=== PATIENT | male | born 1950 | race Two or more races ===

== ENCOUNTER 2018-03-04 07:18 | Inpatient (IN) | payer OTHER ==
[2018-03-04] MEDS: LACTATED RINGER'S 1,000 ML IV* (06:00)
[2018-03-04] MEDS: SOD CHLORIDE 0.9% 100 ML, TRANEXAMIC ACID 3,000 MG IRR (08:00)
[2018-03-04] MEDS ORDERED: BUPIVACAINE 0.5% (SDV) 30 ML, morphine SULFATE (PF) 8 MG, EPINEPHrine 0.3 MG, KETOROLAC... IRR (08:00)
[2018-03-04] MEDS ORDERED: ROCURONIUM 50 MG INJ (08:22)
[2018-03-04] MEDS ORDERED: CEFAZOLIN 1 GM INJ (08:22)
[2018-03-04] MEDS ORDERED: PROPOFOL 20 ML (08:22)
[2018-03-04] MEDS ORDERED: NEOSTIGMINE 3 MG/3 ML SYRINGE (08:22)
[2018-03-04] MEDS ORDERED: GLYCOPYRROLATE 0.4 MG INJ (08:22)
[2018-03-04] MEDS ORDERED: ONDANSETRON 4 MG INJ (08:23)
[2018-03-04] MEDS ORDERED: DEXAMETHASONE 4 MG/ML 1 ML INJ (08:23)
[2018-03-04] MEDS ORDERED: MIDAZOLAM 1 MG/ML 2 ML INJ (08:23)
[2018-03-04] MEDS ORDERED: morphine SULFATE/PF (10 MG/10 ML) INJ (08:23)
[2018-03-04] MEDS ORDERED: FENTAnyl 50 MCG/ML VIAL (08:23)
[2018-03-04] MEDS: DEXAMETHASONE 1 MG TAB PO (08:35)
[2018-03-04] MEDS: TRANEXAMIC ACID 1,000 MG in DEXTROSE 5% 100 ML IVPB (10:00)
[2018-03-04] MEDS: POLYMYXIN/BACITRACIN 1L IRRIG (10:10)
[2018-03-04] MEDS: CEFAZOLIN 2 GM/50 ML (PMX) 50 ML IVPB (10:21)
[2018-03-04] MEDS ORDERED: THROMBIN 5000 UNIT VIAL (10:45)
[2018-03-04] MEDS ORDERED: POLYMYXIN/BACITRACIN 1L IRRIG (10:45)
[2018-03-04] MEDS ORDERED: CA CHLORIDE (GM) 10% 10 ML INJ (10:45)
[2018-03-04] MEDS ORDERED: KETOROLAC 30 MG INJ IV (11:00)
[2018-03-04] MEDS ORDERED: DIPHENHYDRAMINE 50 MG INJ IV ×3 (11:00→12:00)
[2018-03-04] MEDS ORDERED: MEPERIDINE 25 MG INJ IV (11:00)
[2018-03-04] MEDS ORDERED: KETOROLAC 15 MG INJ IV (11:00)
[2018-03-04] MEDS ORDERED: OXYCODONE/ACETAMINOPHEN (5/325) TAB PO ×2 (11:00)
[2018-03-04] MEDS ORDERED: MIDAZOLAM 1 MG/ML 2 ML INJ IV (11:00)
[2018-03-04] MEDS ORDERED: HYDROmorphONE 1 MG/5 ML IV SYRINGE IV ×3 (11:00)
[2018-03-04] MEDS ORDERED: NALBUPHINE HCL (10 MG/1 ML) INJ IV (11:00)
[2018-03-04] MEDS ORDERED: LABETALOL HCL 20MG INJ IV (11:00)
[2018-03-04] MEDS ORDERED: NALOXONE (0.4 MG/ML) INJ IV (11:00)
[2018-03-04] MEDS ORDERED: HYDROmorphONE 0.5 MG/0.5 ML SYG IV ×2 (11:00)
[2018-03-04] MEDS ORDERED: hydrALAzine 20 MG INJ IV (11:00)
[2018-03-04] MEDS ORDERED: ALBUTEROL 0.083% (NEB) 2.5 MG/3 ML AMP HHN (11:00)
[2018-03-04] MEDS ORDERED: EPHEDrine SULFATE 50 MG/5 ML SYG IV (11:00)
[2018-03-04] MEDS ORDERED: TRIMETHOBENZAMIDE 100 MG/ML VIAL IM ×2 (11:00)
[2018-03-04] MEDS ORDERED: FENTAnyl 50 MCG/ML VIAL IV ×3 (11:00)
[2018-03-04] MEDS ORDERED: IPRATROPIUM (NEB) 0.5 MG/2.5 ML AMP HHN (11:00)
[2018-03-04] MEDS ORDERED: metFORMIN 850 MG TAB PO (12:00)
[2018-03-04] MEDS ORDERED: NACL 0.9% 3 ML SYG IV (12:00)
[2018-03-04] MEDS ORDERED: ZOLPIDEM 5 MG TAB PO (12:00)
[2018-03-04] MEDS ORDERED: oxyCODONE 5 MG TAB PO ×2 (12:00)
[2018-03-04] MEDS ORDERED: MAGNESIUM HYDROXIDE 30ML CUP PO (12:00)
[2018-03-04] MEDS ORDERED: ONDANSETRON 4 MG INJ IV (12:00)
[2018-03-04] MEDS ORDERED: CEFAZOLIN 1 GM/50 ML (PMX) 50 ML IVPB (12:53)
[2018-03-04 13:21] LABS: ADD MAN DIFF? NO
[2018-03-04 13:26] LABS: WHITE BLOOD COUNT 9.6 10^3/ul (4.8-10.8)
[2018-03-04 13:26] LABS: BASOPHILS % 0.4 % (0.0-2.0); EOSINOPHILS % 0.2 % (0.0-7.0); HEMATOCRIT 36.3 % (42.0-52.0); HEMOGLOBIN 11.9 g/dl (14.0-18.0); LYMPHOCYTES % 9.9 % (15.0-51.0); MEAN CORPUSCULAR HGB CONC 32.8 g/dl (32.0-37.0); MEAN CORPUSCULAR VOLUME 85.4 fl (82.0-101.0); MONOCYTE # 0.4 10^3/ul (0.3-0.9); MONOCYTES % 4.2 % (0.0-11.0); NEUTROPHILS % 83.9 % (39.0-77.0); PLATELET COUNT 173 10^3/UL (140-415); RED BLOOD COUNT 4.25 10^6/ul (4.70-6.10); RED CELL DISTRIBUTION WIDTH 13.1 % (11.5-14.5)
[2018-03-04] MEDS: GABAPENTIN 300 MG CAP PO ×2 (13:41→21:04)
[2018-03-04] MEDS: DEXAMETHASONE 2 MG TAB PO ×2 (13:42→19:27)
[2018-03-04] MEDS: CEFAZOLIN 1 GM/50 ML (PMX) 50 ML IVPB ×2 (13:43→21:04)
[2018-03-04] MEDS: ACETAMINOPHEN 1000MG/100ML IV 100 ML IVPB ×2 (13:54→22:12)
[2018-03-04] MEDS: ONDANSETRON 4 MG INJ IV ×2 (14:09→22:19)
[2018-03-04] MEDS: ALBUTEROL HFA 8 GM INHALER INH ×3 (14:33→21:00)
[2018-03-04] MEDS: LACTATED RINGER'S 1,000 ML IV ×2 (14:42→22:12)
[2018-03-04] MEDS ORDERED: GLUCOSE GEL 15 GRAM TUBE PO ×2 (16:30)
[2018-03-04] MEDS ORDERED: GLUCAGON 1 MG INJ IM (16:30)
[2018-03-04] MEDS ORDERED: DEXTROSE 50% 50 ML SYRINGE IV ×2 (16:30)
[2018-03-04] MEDS ORDERED: GLUCOSE GEL 15 GRAM TUBE BUCCAL (16:30)
[2018-03-04] MEDS: metFORMIN 850 MG TAB PO (17:38)
[2018-03-04] MEDS: INSULIN ASPART [NOVOLOG] 3 ML PEN SC (17:55)
[2018-03-04] MEDS ORDERED: NON-FORMULARY/PATIENT OWN MED (Simvastatin 10 MG) PO (21:00)
[2018-03-04] MEDS: ATORVASTATIN 10 MG TAB PO (21:04)
[2018-03-04] MEDS: SENNA/DOCUSATE NA (8.6MG/50MG) TAB PO (21:04)
[2018-03-05] MEDS: ALBUTEROL HFA 8 GM INHALER INH ×6 (01:00→19:27)
[2018-03-05] MEDS: DEXAMETHASONE 2 MG TAB PO ×2 (01:18→09:09)
[2018-03-05 05:04] LABS: ADD MAN DIFF? NO
[2018-03-05 05:10] LABS: BASOPHILS % 0.1 % (0.0-2.0); HEMATOCRIT 32.5 % (42.0-52.0); HEMOGLOBIN 11.1 g/dl (14.0-18.0); LYMPHOCYTES # 0.8 10^3/ul (0.8-2.9); LYMPHOCYTES % 7.5 % (15.0-51.0); MEAN CORPUSCULAR HEMOGLOBIN 28.2 pg (29.0-33.0); MEAN CORPUSCULAR HGB CONC 34.2 g/dl (32.0-37.0); MEAN CORPUSCULAR VOLUME 82.7 fl (82.0-101.0); MEAN PLATELET VOLUME 10.5 fl (7.4-10.4); NEUTROPHILS % 82.8 % (39.0-77.0); PLATELET COUNT 159 10^3/UL (140-415); RED BLOOD COUNT 3.93 10^6/ul (4.70-6.10); RED CELL DISTRIBUTION WIDTH 13.1 % (11.5-14.5)
[2018-03-05 05:10] LABS: WHITE BLOOD COUNT 10.9 10^3/ul (4.8-10.8)
[2018-03-05] MEDS: CEFAZOLIN 1 GM/50 ML (PMX) 50 ML IVPB (05:59)
[2018-03-05] MEDS: ACETAMINOPHEN 1000MG/100ML IV 100 ML IVPB (06:00)
[2018-03-05] MEDS: PANTOPRAZOLE (EC) 40 MG TAB PO (06:00)
[2018-03-05] MEDS: LEVOTHYROXINE 75 MCG TAB PO (06:03)
[2018-03-05] MEDS: LACTATED RINGER'S 1,000 ML IV ×2 (07:54→17:54)
[2018-03-05] MEDS ORDERED: NON-FORMULARY/PATIENT OWN MED (Omeprazole* 40 MG) PO (09:00)
[2018-03-05] MEDS: ASPIRIN (EC) 325 MG TAB PO (09:03)
[2018-03-05] MEDS: oxyCODONE 5 MG TAB PO ×3 (09:04→20:58)
[2018-03-05] MEDS: metFORMIN 850 MG TAB PO ×2 (09:08→18:01)
[2018-03-05] MEDS: INSULIN ASPART [NOVOLOG] 3 ML PEN SC ×3 (09:14→18:07)
[2018-03-05] MEDS: SENNA/DOCUSATE NA (8.6MG/50MG) TAB PO ×2 (13:07→20:57)
[2018-03-05] MEDS: FLUTICASONE 0.05% 16 GM NAS SPRAY NASAL (13:07)
[2018-03-05] MEDS: GABAPENTIN 300 MG CAP PO (20:57)
[2018-03-05] MEDS: ATORVASTATIN 10 MG TAB PO (20:58)
[2018-03-06] MEDS: HYDROmorphONE 1 MG/ML SYG IV ×2 (00:41→12:26)
[2018-03-06] MEDS: ALBUTEROL HFA 8 GM INHALER INH ×4 (01:00→13:00)
[2018-03-06 05:01] LABS: ADD MAN DIFF? NO
[2018-03-06 05:08] LABS: WHITE BLOOD COUNT 7.2 10^3/ul (4.8-10.8)
[2018-03-06 05:08] LABS: BASOPHILS % 0.3 % (0.0-2.0); EOSINOPHILS % 0.1 % (0.0-7.0); HEMATOCRIT 32.6 % (42.0-52.0); HEMOGLOBIN 10.8 g/dl (14.0-18.0); LYMPHOCYTES # 1.6 10^3/ul (0.8-2.9); LYMPHOCYTES % 22.1 % (15.0-51.0); MEAN CORPUSCULAR HEMOGLOBIN 27.8 pg (29.0-33.0); MEAN CORPUSCULAR HGB CONC 33.1 g/dl (32.0-37.0); MEAN PLATELET VOLUME 10.3 fl (7.4-10.4); MONOCYTE # 0.9 10^3/ul (0.3-0.9); MONOCYTES % 12.4 % (0.0-11.0); NEUTROPHIL # 4.7 10^3/ul (1.6-7.5); NEUTROPHILS % 64.7 % (39.0-77.0); PLATELET COUNT 160 10^3/UL (140-415); RED BLOOD COUNT 3.88 10^6/ul (4.70-6.10); RED CELL DISTRIBUTION WIDTH 13.2 % (11.5-14.5)
[2018-03-06] MEDS: LEVOTHYROXINE 75 MCG TAB PO (06:04)
[2018-03-06] MEDS: PANTOPRAZOLE (EC) 40 MG TAB PO (06:04)
[2018-03-06] MEDS: oxyCODONE 5 MG TAB PO (08:59)
[2018-03-06] MEDS: FLUTICASONE 0.05% 16 GM NAS SPRAY NASAL (09:00)
[2018-03-06] MEDS: SENNA/DOCUSATE NA (8.6MG/50MG) TAB PO (09:02)
[2018-03-06] MEDS: ASPIRIN (EC) 325 MG TAB PO (09:03)
[2018-03-06] MEDS: metFORMIN 850 MG TAB PO (09:15)
[2018-03-06] MEDS: INSULIN ASPART [NOVOLOG] 3 ML PEN SC (09:15)
[2018-03-06] MEDS ORDERED: MAGNESIUM HYDROXIDE 30ML CUP PO (21:00)
== END 2018-03-06 16:41 | disposition home or self-care (01) | DRG 470 ==
LOC: REC 07:18 → MS1 13:43
PROVIDERS: Orthopaedic Surgery
PROC: 0SR904A Replacement of Right Hip Joint with Ceramic on Polyethylene Synthetic Substitute, Uncemented, Open Approach (ICD-10-PCS; principal; 2018-03-04 09:30)
DX: M16.51 Unilateral post-traumatic osteoarthritis, right hip (principal); E11.9 Type 2 diabetes mellitus without complications; E03.9 Hypothyroidism, unspecified; E78.5 Hyperlipidemia, unspecified; K21.9 Gastro-esophageal reflux disease without esophagitis; J45.909 Unspecified asthma, uncomplicated
CPT/HCPCS: 72170; 73530; 82962; 85025; 88304; 88311; 97110; 97116; 97162; 97530